=== PATIENT | female | born 1980 | race Caucasian/White ===

== ENCOUNTER 2017-10-01 15:28 | Inpatient (IN) | payer OTHER ==
[2017-10-01] MEDS ORDERED: OXYTOCIN 20 UNIT in LR 1,000 ML IV PRN (15:51)
[2017-10-01] MEDS ORDERED: EPSOM SALT 454 GM TP PRN (15:51)
[2017-10-01] MEDS ORDERED: LR 1,000 ML IV PRN (15:51)
[2017-10-01] MEDS ORDERED: OLIVE OIL 118 ML BTL MISC PRN (15:51)
[2017-10-01] MEDS ORDERED: TERBUTALINE SULFATE 1 MG/ML VIAL IV PRN (15:51)
[2017-10-01 16:21] LABS: % IMMATURE GRANULYOCYTES 1.2 % (0.0-1.1); ABSOLUTE IMMATURE GRANULOCYTES 0.11 10^3/uL (0.00-0.10); ADD DIFF? NO; ADD MORPH? NO; ADD SCAN? NO; ATYPICAL LYMPHOCYTE FLAG 0 (0-99); FRAGMENT RBC FLAG 0 (0-99); HEMATOCRIT 37.2 % (38.0-47.0); HEMOGLOBIN 12.9 g/dL (12.6-16.3); LEFT SHIFT FLG 0 (0-99); LIPEMIA HEMOLYSIS FLAG 90 (0-99); MEAN CELL HEMOGLOBIN 30.7 pg (27.9-34.1); MEAN CELL HEMOGLOBIN CONCENTR. 34.7 g/dL (32.4-36.7); MEAN CELL VOLUME 88.6 fL (81.5-99.8); MEAN PLATELET VOLUME 10.3 fL (8.7-11.7); PLATELET CLUMPS FLAG 0 (0-99); PLATELET COUNT 227 10^3/uL (150-400); RED CELL DISTRIBUTION WIDTH 14.6 % (11.5-15.2)
[2017-10-01 16:37] LABS: ALANINE AMINOTRANSFERASE 43 IU/L (9-52); ASPARTATE AMINOTRANSFERASE 32 IU/L (14-46); BILIRUBIN,TOTAL 0.4 mg/dL (0.1-1.4); BILIRUBIN-CONJUGATED 0.2 mg/dL (0.0-0.5); BILIRUBIN-UNCONJUGATED 0.2 mg/dL (0.0-1.1); CREATININE 0.5 mg/dL (0.6-1.0); GLOMERULAR FILTRATION RATE > 60; LACTATE DEHYDROGENASE 475 IU/L (313-618); URIC ACID 6.1 mg/dL (2.5-6.8)
[2017-10-01] MEDS ORDERED: LABETALOL HCL 5 MG/ML 20 ML MDV IVP ONE (16:49)
--- NOTE | 2017-10-01 17:02 | OBPROG ---
Labor Progress Note Assessment/Plan: Assessment:cat 1 fhr elevated bp denies pih symptoms 1cm exam mcnally bulb low dose pitocin Plan:admit, iol elevated bp consult for POC with dr. philippe 10/01/17 17:01 Subjective/Intrapartum Course: 10/01/17 17:00 Denies PIH symptoms. Denies regular contractions. Feeling positive movement denies leaking and bleeding. Discussed need to have a baby with elevated bp Objective: 10/01/17 16:00 10/01/17 16:00 Uric Acid 6.1 mg/dL (2.5-6.8) 10/01/17 16:00 Total Bilirubin 0.4 mg/dL (0.1-1.4) 10/01/17 16:00 Conjugated Bilirubin 0.2 mg/dL (0.0-0.5) 10/01/17 16:00 Unconjugated Bilirubin 0.2 mg/dL (0.0-1.1) 10/01/17 16:00 AST 32 IU/L (14-46) 10/01/17 16:00 ALT 43 IU/L (9-52) 10/01/17 16:00 Lactate Dehydrogenase 475 IU/L (313-618) 10/01/17 16:00 - SVE Dilation (cm): 1 Effacement (%): Less than 50 Station: -2 Membranes: Intact - Contraction Pattern Assessment Current Contraction Pattern: Irregular - FHR Assessment Pitts FHR (bpm): 135 FHR Pattern Variability: Moderate FHR Category: 1 - Physical Exam General Appearance: WD/WN, alert, no apparent distress Respiratory: chest non-tender, lungs clear, normal breath sounds Cardiac/Chest: regular rate, rhythm Abdomen: normal bowel sounds Extremities: normal range of motion, Ting's sign (negative bilaterally) DTR- Lower Extremities: Knee (R): 1+, Knee (L): 1+ (no clonus) Skin: normal color, warm/dry Neuro/Psych: no motor/sensory deficits, alert, normal mood/affect, oriented x 3 ICD10 Worksheet Patient Problems: Problems Problem Status Onset elevated bp iol 38 weeks Acute
--- NOTE | 2017-10-01 18:46 | OBPROG ---
Labor Progress Note Assessment/Plan: Assessment:cat 1 fhr elevated bp labetolol 5mg ivp for elevated bp denies pih symptoms 1cm exam/ 50/-2 posterior soft us to verify cephalic presentation unable to place mcnally will do cytotec 50mcg po q4h frequent bp continuous monitoring medication for sleep at patient request Plan:consulted with dr. philippe on change of poc for patient dr. philippe in agreement with POC cytotec po q4h 10/01/17 17:01 10/01/17 18:43 Subjective/Intrapartum Course: 10/01/17 17:00 Denies PIH symptoms. Denies regular contractions. Feeling positive movement denies leaking and bleeding. Discussed need to have a baby with elevated bp 10/01/17 18:42 Denies PIH symptoms. Denies pain. Feeling pain with speculum exam, and mcnally placement. Objective: 10/01/17 16:00 10/01/17 16:00 Patient ABO/Rh AB POSITIVE 10/01/17 16:00 Uric Acid 6.1 mg/dL (2.5-6.8) 10/01/17 16:00 Total Bilirubin 0.4 mg/dL (0.1-1.4) 10/01/17 16:00 Conjugated Bilirubin 0.2 mg/dL (0.0-0.5) 10/01/17 16:00 Unconjugated Bilirubin 0.2 mg/dL (0.0-1.1) 10/01/17 16:00 AST 32 IU/L (14-46) 10/01/17 16:00 ALT 43 IU/L (9-52) 10/01/17 16:00 Lactate Dehydrogenase 475 IU/L (313-618) 10/01/17 16:00 Temp Pulse Resp BP Pulse Ox 98 177/98 H 10/01/17 18:16 10/01/17 18:16 - SVE Dilation (cm): 1 Effacement (%): 50 Station: -3 Membranes: Intact - Contraction Pattern Assessment Current Contraction Pattern: Irregular - FHR Assessment Pitts FHR (bpm): 135 FHR Pattern Variability: Moderate FHR Category: 1 - AP Antepartum Course: edc 10/14/2017 came in too office today for routine check with elevated bp. PIH labs WNL. BP elevated over several hours in labor and delivery. anemic with . AMA. Exposure to zika virus negative testing. inatal negative. 10/01/17 18:47 Oxytocin Orders Assessment - Pre-Induction/Augmentation Assessment Gestational Age: 38 week(s) and 1 day(s) ICD10 Worksheet Patient Problems: Problems Problem Status Onset elevated bp iol 38 weeks Acute
[2017-10-01] MEDS ORDERED: LIDOCAINE 1% 300 MG/30 ML SDV ONE (19:02)
[2017-10-01] MEDS ORDERED: AMMONIA AROMATIC 1 EACH AMP IH ONE (19:02)
[2017-10-01] MEDS ORDERED: OLIVE OIL 118 ML BTL ONE (19:02)
[2017-10-01] MEDS ORDERED: TERBUTALINE SULFATE 1 MG/ML VIAL ONE (19:02)
[2017-10-01] MEDS ORDERED: MISOPROSTOL 200 MCG TAB ONE (19:02)
[2017-10-01] MEDS ORDERED: OXYTOCIN 10 UNIT/ML VIAL ONE (19:02)
[2017-10-01] MEDS: MISOPROSTOL 100 MCG TAB PO SCH ×2 (19:11→23:12)
--- NOTE | 2017-10-01 19:43 | GHP ---
[f rep st] HISTORY AND PHYSICAL DATE OF ADMISSION: 10/01/2017 HISTORY OF PRESENTING ILLNESS: The patient is a 37-year-old 1, para 0, with an EDC of 10/14/2017, who comes over from the office with significantly elevated blood pressures. The patient denies leaking, bleeding, cramping. Denies PIH symptoms. States feeling positive movement. The patient's gestational age is 38 weeks. The patient has been routinely seen with [facility], [place] since 8 weeks and 1 day, on 03/05/2017. MEDICAL HISTORY: Cystitis, UTIs q. 2 years. Surgeries: [place] teeth extraction. Lacerated foot had stitches. GYNECOLOGICAL HISTORY: Previous OCP use, discontinued in 10/2016. Pap on 2015 was within normal limits. SOCIAL HISTORY: Denies tobacco, alcohol, and drug use. Significant other is Janes. PRESENT HISTORY: AMA, elevated blood pressures on 10/01/2017. REVIEW OF SYSTEMS: Times 8 were benign. PIH symptoms were denied. Category 1 heart rate. ALLERGIES: NKDA. MEDICATIONS: vitamins 1 p.o. daily. LABS: Patient is AB positive, antibody negative. RPR is nonreactive. Rubella is nonimmune. Hepatitis is negative. HIV is negative. Gonorrhea and chlamydia were negative. AFP was negative. _Innatal was negative. 1 hour GTT was within normal limits. Zika virus was tested resulted negative. Early ultrasound did confirm dates. PIH labs were within normal limits. P-to-C ratio was 235. PHYSICAL ASSESSMENT: GENERAL: The patient is awake, alert, oriented x3. LUNGS : Clear bilaterally. ABDOMEN: Bowel sounds are positive in all 4 quadrants. EXTREMITIES: DTRs were 1+ bilaterally with no clonus. Homans sign was negative. PELVIC: 1 cm, 50% effaced, very posterior, very high, soft. Presenting part was verified with ultrasound; the baby is cephalic. Consulted with Dr. Sandhya Vasquez. PLAN OF CARE: 1. Labetalol for blood pressures higher than 160/105. 2. GBS is negative. 3. Induction of labor with Cytotec 50 mcg p.o. q.4 hours. 4. Love bulb when able to place. 5. Low-dose Pitocin up to 6 milliunits with Love bulb. 6. Pitocin per protocol after Love bulb is discontinued. 7. Monitor blood pressures per protocol. 8. Continuous monitoring. 9. Pain medication per patient request. 10. Medication for sleep if desires /[id number]/MODL MTDD
[2017-10-01] MEDS ORDERED: ZOLPIDEM TARTRATE 5 MG TAB PO PRN (20:30)
[2017-10-02] MEDS: MISOPROSTOL 100 MCG TAB PO SCH (03:15)
[2017-10-02 06:12] LABS: % IMMATURE GRANULYOCYTES 0.5 % (0.0-1.1); ABSOLUTE IMMATURE GRANULOCYTES 0.05 10^3/uL (0.00-0.10); ADD DIFF? NO; ADD MORPH? NO; ADD SCAN? NO; ATYPICAL LYMPHOCYTE FLAG 10 (0-99); FRAGMENT RBC FLAG 0 (0-99); HEMOGLOBIN 12.8 g/dL (12.6-16.3); LEFT SHIFT FLG 0 (0-99); LIPEMIA HEMOLYSIS FLAG 90 (0-99); MEAN CELL HEMOGLOBIN CONCENTR. 34.6 g/dL (32.4-36.7); MEAN CELL VOLUME 89.6 fL (81.5-99.8); MEAN PLATELET VOLUME 9.9 fL (8.7-11.7); PLATELET CLUMPS FLAG 0 (0-99); PLATELET COUNT 216 10^3/uL (150-400); RED BLOOD CELL COUNT 4.13 10^6/uL (4.18-5.33); RED CELL DISTRIBUTION WIDTH 14.7 % (11.5-15.2)
[2017-10-02 06:44] LABS: ALANINE AMINOTRANSFERASE 41 IU/L (9-52); ASPARTATE AMINOTRANSFERASE 32 IU/L (14-46); CREATININE 0.6 mg/dL (0.6-1.0); GLOMERULAR FILTRATION RATE > 60; LACTATE DEHYDROGENASE 442 IU/L (313-618); URIC ACID 6.5 mg/dL (2.5-6.8)
[2017-10-02] MEDS ORDERED: LABETALOL HCL 5 MG/ML 20 ML MDV IVP ONE (06:51)
[2017-10-02] MEDS ORDERED: OXYTOCIN 30 UNIT in NS 500 ML IV SCH (07:00)
--- NOTE | 2017-10-02 07:00 | OBPROG ---
Labor Progress Note Assessment/Plan: Assessment:cat 1 fhr elevated bp labetolol 5mg ivp x2 to assist bp 183/105 denies pih symptoms /-1 after cytotec mcnally bulb placed srom with placement able to use mcnally bulb to mechanically dialte to 3-4 mcnally bulb dc'd us to verify cephalic presentation frequent bp continuous monitoring Plan:pitocin per protocol 10/01/17 17:01 10/01/17 18:43 10/02/17 06:57 Subjective/Intrapartum Course: 10/01/17 17:00 Denies PIH symptoms. Denies regular contractions. Feeling positive movement denies leaking and bleeding. Discussed need to have a baby with elevated bp 10/01/17 18:42 Denies PIH symptoms. Denies pain. Feeling pain with speculum exam, and mcnally placement. 10/02/17 06:57 Feeling greater pain. Urge to pee continually. Feeling some pressure. Objective: 10/02/17 05:55 10/02/17 05:55 Patient ABO/Rh AB POSITIVE 10/01/17 16:00 Uric Acid 6.5 mg/dL (2.5-6.8) 10/02/17 05:55 Total Bilirubin 0.4 mg/dL (0.1-1.4) 10/01/17 16:00 Conjugated Bilirubin 0.2 mg/dL (0.0-0.5) 10/01/17 16:00 Unconjugated Bilirubin 0.2 mg/dL (0.0-1.1) 10/01/17 16:00 AST 32 IU/L (14-46) 10/02/17 05:55 ALT 41 IU/L (9-52) 10/02/17 05:55 Lactate Dehydrogenase 442 IU/L (313-618) 10/02/17 05:55 Temp Pulse Resp BP Pulse Ox 98 177/98 H 10/01/17 18:16 10/01/17 18:16 - SVE Dilation (cm): 3, 4 Effacement (%): 100 Station: -1 Membranes: SROM Amniotic Fluid Color: Clear - Contraction Pattern Assessment Current Contraction Pattern: Regular - FHR Assessment Pitts FHR (bpm): 135 FHR Pattern Variability: Minimal FHR Category: 2 - Procedures Non-surgical Procedures: Amniotomy - AP Antepartum Course: edc 10/14/2017 came in too office today for routine check with elevated bp. PIH labs WNL. BP elevated over several hours in labor and delivery. anemic with . AMA. Exposure to zika virus negative testing. inatal negative. 10/01/17 18:47 Oxytocin Orders Assessment - Pre-Induction/Augmentation Assessment Gestational Age: 38 week(s) and 1 day(s) ICD10 Worksheet Patient Problems: Problems Problem Status Onset elevated bp iol 38 weeks Acute
[2017-10-02] MEDS ORDERED: PHENYLEPHRINE HCL 100 MCG/ML SYR ONE ×2 (07:43→19:23)
[2017-10-02] MEDS ORDERED: BUPIVACAINE 0.25% 30 ML SDV ONE (07:43)
[2017-10-02] MEDS ORDERED: fentaNYL 100 MCG/2 ML INJ ONE ×2 (07:45→18:37)
--- NOTE | 2017-10-02 09:29 | PREANESOB ---
Obstetric Pre-Anesthesia Info - General Info Proposed Procedure: Labor and delivery (pitocin planned). : 1 Para: 0 LUKAS: 10/14/17 Gestational Age: 38 week(s) and 1 day(s) - Info Status: Full Term Monitors: External FHR Baseline (bpm): 135 FHR Pattern: Reassuring - Labor Status Cervical Dilation per last OB SVE: 4 Station per last OB SVE: -1 Amniotic Fluid Color: Clear Pitocin: Planned PIH: Mild Magnesium Sulfate in Use: No Indications for Labor Analgesia: Induction of Labor, Pain Control Labor Epidural: Proposed Anesthesia ROS: Prior oral surgery. Allergies/Adverse Reactions: Allergy/AdvReac Type Severity Reaction Status Date / Time No Known Allergies Allergy Unverified 10/01/17 15:50 Visit Medications: Generic Name Dose Route Start Last Admin Trade Name Freq PRN Reason Stop Dose Admin Lactated Ringer's 1,000 mls @ 0 mls/hr 10/01/17 15:51 10/02/17 07:37 Lr IV 10/02/17 15:50 1,000 mls PRN PRN Administration SEE PROTOCOL CONDITIONS Protocol Per Protocol Oxytocin 20 unit/ Lactated 1,002 mls @ 150 mls/hr 10/01/17 15:51 Ringer's IV PRN PRN Post- bleeding Oxytocin 30 unit/ Sodium 503 mls @ 0 mls/hr 10/02/17 07:00 10/02/17 09:00 Chloride IV 03/31/18 06:59 503 mls CONT WARD Administration Protocol Per Protocol Ibuprofen 600 mg 10/01/17 15:51 Motrin PO 03/30/18 15:50 Q6HRS PRN post , inflammation Magnesium Sulfate 454 gm 10/01/17 15:51 Epsom Salt TP 03/30/18 15:50 Q1H PRN perineal discomfort Misoprostol 50 mcg 10/01/17 18:52 10/02/17 03:15 Cytotec PO 03/30/18 18:51 50 mcg Q4H WARD Administration Blackwell Oil 118 ml 10/01/17 15:51 Sweet Oil MISC 03/30/18 15:50 ONCE PRN perineal massage Terbutaline Sulfate 0.25 mg 10/01/17 15:51 Brethine IV 03/30/18 15:50 ONCE PRN Tachysystole Zolpidem Tartrate 10 mg 10/01/17 20:30 10/01/17 23:11 Ambien PO 03/30/18 20:29 10 mg HS PRN Administration Sleep/Insomnia Discontinued Medications Generic Name Dose Route Start Last Admin Trade Name Valentina PRN Reason Stop Dose Admin Ammonia (Aromatic Spirit) Confirm 10/01/17 19:02 Ammonia Aromatic Administered 10/01/17 19:03 Dose 1 each IH .STK-MED ONE Bupivacaine HCl Confirm 10/02/17 07:43 Sensorcaine 0.25% Sdv Administered 10/02/17 07:44 Dose 30 ml .ROUTE .STK-MED ONE Fentanyl Confirm 10/02/17 07:45 Sublimaze Administered 10/02/17 07:46 Dose 100 mcg .ROUTE .STK-MED ONE Labetalol HCl 20 mg 10/01/17 16:49 10/01/17 18:16 Trandate Injection IVP 10/01/17 16:50 5 mg ONCE ONE Administration Labetalol HCl 10 mg 10/02/17 06:51 10/02/17 06:20 Trandate Injection IVP 10/02/17 06:52 10 mg ONCE ONE Administration Lidocaine HCl Confirm 10/01/17 19:02 Lidocaine Hcl 1% Administered 10/01/17 19:03 Dose 300 mg .ROUTE .STK-MED ONE Misoprostol Confirm 10/01/17 19:02 Cytotec Administered 10/01/17 19:03 Dose 1,000 mcg .ROUTE .STK-MED ONE Blackwell Oil Confirm 10/01/17 19:02 Sweet Oil Administered 10/01/17 19:03 Dose 118 ml .ROUTE .STK-MED ONE Oxytocin Confirm 10/01/17 19:02 Pitocin Administered 10/01/17 19:03 Dose 30 unit .ROUTE .STK-MED ONE Phenylephrine HCl Confirm 10/02/17 07:43 Neosynephrine Administered 10/02/17 07:44 Dose 1,000 mcg .ROUTE .STK-MED ONE Terbutaline Sulfate Confirm 10/01/17 19:02 Brethine Administered 10/01/17 19:03 Dose 1 mg .ROUTE .STK-MED ONE - Anesthesia History Response to Local Anesthetics: Normal Anesthesia & Operative History: No Prior Problems Family Anesthesia History: Negative - Social History Substance Use/Abuse: Denies - Vital Signs Latest Vital Signs (Nursing): Temp Pulse Resp BP Pulse Ox 108 H 188/113 H 10/02/17 06:20 10/02/17 06:20 Blood Pressure: 170/103 Heart Rate: 100 Respiratory Rate: 18 Height/Weight (Nursing): Height 162.56 cm Weight 91.626 kg - Focused Exam Neck exam: FROM Mallampati Score: Class 1 Mouth exam: normal dental/mouth exam Pulmonary: no respiratory distress Cardiovascular: regular rate and rhythym Labs: 10/02/17 05:55 10/02/17 05:55 Patient ABO/Rh AB POSITIVE 10/01/17 16:00 Uric Acid 6.5 mg/dL (2.5-6.8) 10/02/17 05:55 Total Bilirubin 0.4 mg/dL (0.1-1.4) 10/01/17 16:00 Conjugated Bilirubin 0.2 mg/dL (0.0-0.5) 10/01/17 16:00 Unconjugated Bilirubin 0.2 mg/dL (0.0-1.1) 10/01/17 16:00 AST 32 IU/L (14-46) 10/02/17 05:55 ALT 41 IU/L (9-52) 10/02/17 05:55 Lactate Dehydrogenase 442 IU/L (313-618) 10/02/17 05:55 - Plan Anesthetic Plan: BENNETT Consent Signed and on Chart: Yes Patient/Guardian Understands and Agrees to Plan: Yes Urgent/Emergent Case: Heron ochoa completed preop but documented later for safe timely pt care
[2017-10-02] MEDS ORDERED: ONDANSETRON 4 MG/2 ML VIAL IVP PRN ×2 (09:32→21:22)
[2017-10-02] MEDS ORDERED: PHENYLEPHRINE HCL 100 MCG/ML SYR IVP PRN (09:32)
--- NOTE | 2017-10-02 09:32 | POSTANESTH ---
Post Anesthetic Evaluation Cardiovascular Status: Similar to Pre-Op Cond Respiratory Status: Normal, Stable, Similar to Pre-op Cond. Level of Consciousness/Mental Status: Can Participate in Eval, Alert and Oriented Pain Control: Adequate, Prn Tx Ordered Nausea/Vomiting Control: Adequate, Prn Tx Ordered Complications Possibly Related to Anesthesia: None Noted
[2017-10-02] MEDS ORDERED: fentaNYL 2MCG/ML/BUP 0.1% RTU 100 ML BAG EP ONE (09:40)
[2017-10-02] MEDS ORDERED: LR 500 ML IV SCH (10:00)
[2017-10-02] MEDS ORDERED: fentaNYL 2MCG/ML/BUP 0.1% RTU 100 ML EP SCH (10:00)
[2017-10-02] MEDS ORDERED: ceFAZolin 2 GM/SWFI 2 GM/20 ML SYR IVP ONE (18:05)
[2017-10-02] MEDS ORDERED: CEFAZOLIN 2 GM/DEXTROSE/100 ML BAG IV ONE (18:09)
--- NOTE | 2017-10-02 18:18 | OBPROG ---
Labor Progress Note Assessment/Plan: Assessment: IUP at 38+ wks indxn for gestational hypertension arrest of descent, failed vacuum asst Plan: Proceed to C/S 10/02/17 18:13 Subjective/Intrapartum Course: 10/01/17 17:00 Denies PIH symptoms. Denies regular contractions. Feeling positive movement denies leaking and bleeding. Discussed need to have a baby with elevated bp 10/01/17 18:42 Denies PIH symptoms. Denies pain. Feeling pain with speculum exam, and mcnally placement. 10/02/17 06:57 Feeling greater pain. Urge to pee continually. Feeling some pressure. 10/02/17 18:15 pt is fatiqued, has had pressure and pushed effectively for approx 2 hours - less effectively for building fatique for and hour, at that point, baby at 0 station and attempt to position for labor down and rest. now approx 1 1/2 hour later - attempted VAVD but no descent with station, feels in good OA position but no descent - pt too fatiqued to push further. Disc C/S and pt agrees and consent signed. Objective: 10/02/17 05:55 10/02/17 05:55 Patient ABO/Rh AB POSITIVE 10/01/17 16:00 Uric Acid 6.5 mg/dL (2.5-6.8) 10/02/17 05:55 Total Bilirubin 0.4 mg/dL (0.1-1.4) 10/01/17 16:00 Conjugated Bilirubin 0.2 mg/dL (0.0-0.5) 10/01/17 16:00 Unconjugated Bilirubin 0.2 mg/dL (0.0-1.1) 10/01/17 16:00 AST 32 IU/L (14-46) 10/02/17 05:55 ALT 41 IU/L (9-52) 10/02/17 05:55 Lactate Dehydrogenase 442 IU/L (313-618) 10/02/17 05:55 Temp Pulse Resp BP Pulse Ox 100 18 170/103 H 10/02/17 09:31 10/02/17 09:31 10/02/17 09:31 - SVE Dilation (cm): 10 Effacement (%): 100 Station: 0 Membranes: SROM Amniotic Fluid Color: Clear Dilation Complete Date: 10/02/17 - Contraction Pattern Assessment Current Contraction Pattern: Regular (were q 2-3 min on 14 mu/min pit) - FHR Assessment Pitts FHR (bpm): 130 FHR Pattern Variability: Moderate FHR Category: 1 - Procedures Non-surgical Procedures: Amniotomy - AP Antepartum Course: edc 10/14/2017 came in too office today for routine check with elevated bp. PIH labs WNL. BP elevated over several hours in labor and delivery. anemic with . AMA. Exposure to zika virus negative testing. inatal negative. 10/01/17 18:47 Oxytocin Orders Assessment - Pre-Induction/Augmentation Assessment Gestational Age: 38 week(s) and 1 day(s) ICD10 Worksheet Patient Problems: Problems Problem Status Onset Arrest of descent, delivered, current hospitalization Acute elevated bp iol 38 weeks Acute - ICD10 Problem Qualifiers (1) Arrest of descent, delivered, current hospitalization
[2017-10-02] MEDS ORDERED: morphINE PF 5 MG/10 ML INJ ONE (18:35)
[2017-10-02] MEDS ORDERED: OXYTOCIN 100 UNITS/10 ML VIAL ONE (18:37)
[2017-10-02] MEDS ORDERED: DEXAMETHASONE 4 MG/ML VIAL ONE ×2 (18:38)
[2017-10-02] MEDS ORDERED: ONDANSETRON 4 MG/2 ML VIAL ONE (18:38)
[2017-10-02] MEDS ORDERED: METOCLOPRAMIDE 10 MG/2 ML VIAL ONE (19:08)
[2017-10-02] MEDS ORDERED: MEPERIDINE 25 MG/ML SYR ONE (19:37)
[2017-10-02] MEDS ORDERED: BISACODYL 10 MG SUPP PR PRN (20:00)
[2017-10-02] MEDS ORDERED: LACTULOSE 20 GM/30 ML UDCUP PO PRN (20:00)
[2017-10-02] MEDS ORDERED: MAGNESIUM HYDROXIDE 30 ML UDCUP PO PRN (20:00)
[2017-10-02] MEDS ORDERED: POLYETHYLENE GLYCOL 3350 17 GM PKT PO PRN (20:00)
--- NOTE | 2017-10-02 20:05 | OBDEL ---
Info Type: Primary Presentation at Delivery: Vertex (OP) L&D Analgesia/Anesthesia Type: Epidural GBS+: No Intrapartum Medications: Generic Name Dose Route Start Last Admin Trade Name Freq PRN Reason Stop Dose Admin Oxytocin 30 unit/ Sodium 503 mls @ 0 mls/hr 10/02/17 07:00 10/02/17 09:00 Chloride IV 03/31/18 06:59 503 mls CONT WARD Administration Protocol Per Protocol Misoprostol 50 mcg 10/01/17 18:52 10/02/17 03:15 Cytotec PO 03/30/18 18:51 50 mcg Q4H WARD Administration Zolpidem Tartrate 10 mg 10/01/17 20:30 10/01/17 23:11 Ambien PO 03/30/18 20:29 10 mg HS PRN Administration Sleep/Insomnia Discontinued Medications Generic Name Dose Route Start Last Admin Trade Name Freq PRN Reason Stop Dose Admin Lactated Ringer's 1,000 mls @ 0 mls/hr 10/01/17 15:51 10/02/17 07:37 Lr IV 10/02/17 15:50 1,000 mls PRN PRN Administration SEE PROTOCOL CONDITIONS Protocol Per Protocol Labetalol HCl 20 mg 10/01/17 16:49 10/01/17 18:16 Trandate Injection IVP 10/01/17 16:50 5 mg ONCE ONE Administration Labetalol HCl 10 mg 10/02/17 06:51 10/02/17 06:20 Trandate Injection IVP 10/02/17 06:52 10 mg ONCE ONE Administration - Hospital Course Intrapartum: 10/01/17 17:00 Denies PIH symptoms. Denies regular contractions. Feeling positive movement denies leaking and bleeding. Discussed need to have a baby with elevated bp 10/01/17 18:42 Denies PIH symptoms. Denies pain. Feeling pain with speculum exam, and mcnally placement. 10/02/17 06:57 Feeling greater pain. Urge to pee continually. Feeling some pressure. 10/02/17 18:15 pt is fatiqued, has had pressure and pushed effectively for approx 2 hours - less effectively for building fatique for and hour, at that point, baby at 0 station and attempt to position for labor down and rest. now approx 1 1/2 hour later - attempted VAVD but no descent with station, feels in good OA position but no descent - pt too fatiqued to push further. Disc C/S and pt agrees and consent signed. Indications for Delivery: Gestational Hypertension Vaginal Delivery - Labor and Delivery Amniotic Fluid Color: Clear Dilation Complete Date: 10/02/17 Non-surgical Procedures: Amniotomy Operative Report - Delivery Pre-op Diagnoses: IUP at 38+ wks, arrest of descent, gestational hypertension Post-op Diagnoses: same, delivered, OP presentation History of Prior Section: No Number of Prior Sections: 0 Nulliparous Prior to Delivery: No Indications for Current Section: Arrest of Descent Procedure: Unscheduled, Low Transverse Surgeon: Shelley Escobar Hull Grinder: Lorie Gudino Anesthesiologist: Claudy Celary Findings: normal ut, ov, tubes. clear fluid upon hysterotomy, hands and cord at hysterotomy - direct OP presentation. easy delivery of placenta, poor uterine tone initially but responded to pitocin and massage. incisional edges identified - small inferior extension on left of center. double layer closure. concentrated urine at end of procedure IV Fluid (ml): 2,000 EBL: 1400 Data LUKAS: 10/14/17 Gestational Age: 38 week(s) and 2 day(s) Pitts Delivery Date: 10/02/17 Delivery Time: 18:40 Sex of : Female (Clementina) Score (1 Min): 8 Score (5 Min): 9 ICD10 Worksheet Patient Problems: Problems Problem Status Onset Gestational hypertension Acute delivery delivered Acute Arrest of descent, delivered, current hospitalization Acute - ICD10 Problem Qualifiers (1) Arrest of descent, delivered, current hospitalization
[2017-10-02] MEDS ORDERED: KETOROLAC 30 MG/1 ML SDV ONE (20:39)
[2017-10-02] MEDS: KETOROLAC 30 MG/1 ML SDV IVP SCH (20:42)
[2017-10-02] MEDS ORDERED: NALOXONE HCL 0.4 MG/ML INJ IVP PRN (21:22)
--- NOTE | 2017-10-02 21:26 | POSTANESTH ---
Post Anesthetic Evaluation Cardiovascular Status: Normal, Stable, Similar to Pre-Op Cond Respiratory Status: Normal, Stable, Similar to Pre-op Cond. Level of Consciousness/Mental Status: Can Participate in Eval, Mildly Sleepy, Arousable (Epidural dosed for C Section, to OR, BP treated, comfortable for surgery, to PACU, no pain or nausea.) Pain Control: Adequate, Prn Tx Ordered Nausea/Vomiting Control: Adequate, Prn Tx Ordered Complications Possibly Related to Anesthesia: None Noted
[2017-10-02] MEDS ORDERED: MEASLES,MUMPS&RUBELLA VACC/PF 0.5 ML VIAL SC ONE (21:44)
[2017-10-03] MEDS: KETOROLAC 30 MG/1 ML SDV IVP SCH ×3 (05:14→17:11)
[2017-10-03] MEDS: SENNOSIDES/DOCUSATE SODIUM TAB PO SCH ×3 (05:35→21:15)
[2017-10-03] MEDS ORDERED: MEASLES,MUMPS&RUBELLA VACC/PF 0.5 ML VIAL SC ONE (18:00)
[2017-10-03] MEDS: HYDROCODONE/APAP 5/325 TAB PO PRN (21:15)
[2017-10-04] MEDS: HYDROCODONE/APAP 5/325 TAB PO PRN (07:59)
[2017-10-04] MEDS: SENNOSIDES/DOCUSATE SODIUM TAB PO SCH ×2 (07:59→21:03)
[2017-10-04] MEDS: IBUPROFEN 600 MG TAB PO PRN ×2 (14:09→21:15)
--- NOTE | 2017-10-05 01:12 | OBPP ---
Progress Note Assessment/Plan: Assessment: [id number] s/p primary c/s POD#2 Pre-eclampsia Plan: routine post op care cont monitor BPs closely plan to d/c home tomorrow 10/05/17 01:08 Subjective/ Course: 10/05/17 01:09 late entry Pt doing well, she denies any headaches, visual changes, epigastric pain. She reports min bleeding and pain. She is without difficulty. She is ambulating and voiding without difficulty.She reports +BM. Objective: 10/02/17 05:55 10/02/17 05:55 Patient ABO/Rh AB POSITIVE 10/01/17 16:00 Uric Acid 6.5 mg/dL (2.5-6.8) 10/02/17 05:55 Total Bilirubin 0.4 mg/dL (0.1-1.4) 10/01/17 16:00 Conjugated Bilirubin 0.2 mg/dL (0.0-0.5) 10/01/17 16:00 Unconjugated Bilirubin 0.2 mg/dL (0.0-1.1) 10/01/17 16:00 AST 32 IU/L (14-46) 10/02/17 05:55 ALT 41 IU/L (9-52) 10/02/17 05:55 Lactate Dehydrogenase 442 IU/L (313-618) 10/02/17 05:55 Temp Pulse Resp BP Pulse Ox 36.2 C 92 16 142/89 H 93 10/04/17 23:40 10/04/17 23:55 10/04/17 23:55 10/04/17 23:55 10/04/17 23:55 Uterine Position/Fundal Height: Umbilicus -1, Midline Uterine Tone: Firm (incision: C/D/I, steristrips present)
[2017-10-05] MEDS: IBUPROFEN 600 MG TAB PO PRN ×2 (04:26→10:41)
[2017-10-05] MEDS: NIFEdipine ER 30 MG TAB PO SCH (09:23)
[2017-10-05] MEDS: SENNOSIDES/DOCUSATE SODIUM TAB PO SCH (09:24)
--- NOTE | 2017-10-05 09:40 | OBPP ---
Progress Note Assessment/Plan: Assessment: 1) s/p 1 LTCS secondary to AOD, failed vacuum POD # 3 - pt is stable 2) HTN - BPs elevated, started on Nifedipine 3) Anemia - pt is asymptomatic Plan: Continue routine post-op care Will cont to monitor BPs closely, pt is asymptomatic Nifedipine started this am PIH labs normal on 10/02, will recheck this am Will plan for d/c home in am if BPs stable on meds 10/05/17 09:40 Subjective/ Course: 10/05/17 01:09 late entry Pt doing well, she denies any headaches, visual changes, epigastric pain. She reports min bleeding and pain. She is without difficulty. She is ambulating and voiding without difficulty. She reports +BM. 10/05/17 09:36 Pt seen and examined. She is tearful this morning and worried about baby. Minimal cramping. Mod lochia. Denies any BRYANT/s, visual changes, or RUQ pain. Pt is OOB, thien reg diet, voiding and passing flatus. BM x 1. BF without difficulty -concerned her milk hasn't come in yet. Objective: 10/02/17 05:55 10/02/17 05:55 Patient ABO/Rh AB POSITIVE 10/01/17 16:00 Uric Acid 6.5 mg/dL (2.5-6.8) 10/02/17 05:55 Total Bilirubin 0.4 mg/dL (0.1-1.4) 10/01/17 16:00 Conjugated Bilirubin 0.2 mg/dL (0.0-0.5) 10/01/17 16:00 Unconjugated Bilirubin 0.2 mg/dL (0.0-1.1) 10/01/17 16:00 AST 32 IU/L (14-46) 10/02/17 05:55 ALT 41 IU/L (9-52) 10/02/17 05:55 Lactate Dehydrogenase 442 IU/L (313-618) 10/02/17 05:55 Temp Pulse Resp BP Pulse Ox 36.2 C 94 16 163/98 H 92 10/05/17 04:29 10/05/17 04:29 10/05/17 04:29 10/05/17 09:23 10/05/17 04:29 Uterine Position/Fundal Height: Umbilicus -1 Uterine Tone: Firm Physical Exam - Physical Exam Respiratory: lungs clear, normal breath sounds Cardiac/Chest: regular rate, rhythm Abdomen: normal bowel sounds, non-tender, soft, flatus (+), incision (C/D/I, well approximated) Extremities: non-tender, normal inspection, swelling DTR- Lower Extremities: Plantar (R): 1+, Plantar (L): 1+ Skin: normal color, warm/dry Neuro/Psych: alert, normal mood/affect, oriented x 3
[2017-10-05 11:13] LABS: % IMMATURE GRANULYOCYTES 2.4 % (0.0-1.1); ADD DIFF? NO; ADD MORPH? NO; ADD SCAN? NO; ATYPICAL LYMPHOCYTE FLAG 0 (0-99); FRAGMENT RBC FLAG 0 (0-99); HEMATOCRIT 24.2 % (38.0-47.0); LEFT SHIFT FLG 20 (0-99); LIPEMIA HEMOLYSIS FLAG 80 (0-99); MEAN CELL HEMOGLOBIN 30.3 pg (27.9-34.1); MEAN CELL HEMOGLOBIN CONCENTR. 33.1 g/dL (32.4-36.7); MEAN CELL VOLUME 91.7 fL (81.5-99.8); MEAN PLATELET VOLUME 9.5 fL (8.7-11.7); PLATELET CLUMPS FLAG 10 (0-99); PLATELET COUNT 204 10^3/uL (150-400); RED BLOOD CELL COUNT 2.64 10^6/uL (4.18-5.33)
[2017-10-05 12:10] LABS: ALANINE AMINOTRANSFERASE 51 IU/L (9-52); ASPARTATE AMINOTRANSFERASE 49 IU/L (14-46); BILIRUBIN,TOTAL 0.3 mg/dL (0.1-1.4); BILIRUBIN-CONJUGATED 0.1 mg/dL (0.0-0.5); BILIRUBIN-UNCONJUGATED 0.2 mg/dL (0.0-1.1); CREATININE 0.7 mg/dL (0.6-1.0); GLOMERULAR FILTRATION RATE > 60; LACTATE DEHYDROGENASE 549 IU/L (313-618); URIC ACID 7.9 mg/dL (2.5-6.8)
[2017-10-05] MEDS ORDERED: MAGNESIUM SULF 4 GM/WATER 100 ML BAG IV ONE (16:15)
[2017-10-05] MEDS ORDERED: MAGNESIUM SULF 2 GM/WATER 50 ML IV SCH (16:15)
--- NOTE | 2017-10-05 16:38 | OBPP ---
Progress Note Assessment/Plan: Assessment: 1) preeclampsia 2) s/p 1 LTCS secondary to AOD, failed vacuum POD # 3 - pt is stable Plan: Will start MgSo4 x 24 hrs Cont to closely monitor BPs; IV Labetalol if BPs >160/105 Will recheck PIH labs in am 10/0610/05/17 16:35 Subjective/ Course: 10/05/17 01:09 late entry Pt doing well, she denies any headaches, visual changes, epigastric pain. She reports min bleeding and pain. She is without difficulty. She is ambulating and voiding without difficulty. She reports +BM. 10/05/17 09:36 Pt seen and examined. She is tearful this morning and worried about baby. Minimal cramping. Mod lochia. Denies any BRYANT/s, visual changes, or RUQ pain. Pt is OOB, thien reg diet, voiding and passing flatus. BM x 1. BF without difficulty -concerned her milk hasn't come in yet. 10/05/17 16:37 Pt denies any HAs, visual changes or RUQ pain. BPs elevated. Pt is overwhelmed with everything. Objective: 10/05/17 10:50 10/05/17 10:50 Patient ABO/Rh AB POSITIVE 10/01/17 16:00 Uric Acid 7.9 mg/dL (2.5-6.8) H 10/05/17 10:50 Total Bilirubin 0.3 mg/dL (0.1-1.4) 10/05/17 10:50 Conjugated Bilirubin 0.1 mg/dL (0.0-0.5) 10/05/17 10:50 Unconjugated Bilirubin 0.2 mg/dL (0.0-1.1) 10/05/17 10:50 AST 49 IU/L (14-46) H 10/05/17 10:50 ALT 51 IU/L (9-52) 10/05/17 10:50 Lactate Dehydrogenase 549 IU/L (313-618) 10/05/17 10:50 Temp Pulse Resp BP Pulse Ox 36.6 C 90 18 153/96 H 95 10/05/17 13:00 10/05/17 13:00 10/05/17 13:00 10/05/17 13:00 10/05/17 13:00 Physical Exam - Physical Exam Extremities: non-tender, normal inspection, swelling DTR- Lower Extremities: Plantar (R): 1+, Plantar (L): 1+ Neuro/Psych: alert, normal mood/affect, oriented x 3
[2017-10-05] MEDS ORDERED: LABETALOL HCL 5 MG/ML 20 ML MDV IVP ONE (16:39)
[2017-10-05] MEDS ORDERED: CALCIUM GLUC 10% 1 GM/10 ML VIAL IVP PRN (16:46)
[2017-10-05] MEDS ORDERED: MAGNESIUM SULF 4 GM/WATER 100 ML IV ONE (16:46)
[2017-10-05] MEDS ORDERED: Mag Sulf 500 ML IV SCH (17:00)
[2017-10-05 21:07] VITALS: RESP 16
[2017-10-05] MEDS ORDERED: LABETALOL HCL 5 MG/ML 20 ML MDV IVP PRN (23:10)
[2017-10-06] MEDS: IBUPROFEN 600 MG TAB PO PRN ×2 (03:00→23:07)
[2017-10-06 06:09] LABS: % IMMATURE GRANULYOCYTES 2.9 % (0.0-1.1); ABSOLUTE IMMATURE GRANULOCYTES 0.25 10^3/uL (0.00-0.10); ABSOLUTE NRBC COUNT 0.03 10^3/uL (0-0.01); ADD DIFF? NO; ADD MORPH? NO; ADD SCAN? NO; ATYPICAL LYMPHOCYTE FLAG 0 (0-99); FRAGMENT RBC FLAG 0 (0-99); HEMATOCRIT 27.7 % (38.0-47.0); HEMOGLOBIN 9.4 g/dL (12.6-16.3); LEFT SHIFT FLG 20 (0-99); LIPEMIA HEMOLYSIS FLAG 90 (0-99); MEAN CELL HEMOGLOBIN 30.8 pg (27.9-34.1); MEAN CELL HEMOGLOBIN CONCENTR. 33.9 g/dL (32.4-36.7); MEAN CELL VOLUME 90.8 fL (81.5-99.8); NRBC-AUTO% 0.3 % (0.0-0.2); PLATELET CLUMPS FLAG 0 (0-99); PLATELET COUNT 271 10^3/uL (150-400); RED BLOOD CELL COUNT 3.05 10^6/uL (4.18-5.33); RED CELL DISTRIBUTION WIDTH 14.7 % (11.5-15.2)
[2017-10-06 06:32] LABS: ALANINE AMINOTRANSFERASE 60 IU/L (9-52); ASPARTATE AMINOTRANSFERASE 60 IU/L (14-46); BILIRUBIN,TOTAL 0.4 mg/dL (0.1-1.4); BILIRUBIN-CONJUGATED 0.1 mg/dL (0.0-0.5); BILIRUBIN-UNCONJUGATED 0.3 mg/dL (0.0-1.1); CREATININE 0.6 mg/dL (0.6-1.0); GLOMERULAR FILTRATION RATE > 60; LACTATE DEHYDROGENASE 657 IU/L (313-618); URIC ACID 7.1 mg/dL (2.5-6.8)
[2017-10-06] MEDS: NIFEdipine ER 30 MG TAB PO SCH ×2 (09:10→21:14)
[2017-10-06] MEDS: SENNOSIDES/DOCUSATE SODIUM TAB PO SCH ×3 (09:12→23:46)
--- NOTE | 2017-10-06 13:53 | OBPP ---
Progress Note Assessment/Plan: Assessment: POD 3 s/p primary section arrest of descent PP preeclampsia - on magnesium for 24 hrs on procardia for PP B/P Plan: will stop magnesium at approx 5p and keep close eye on b/p. 10/02/17 18:13 10/06/17 13:47 Subjective/ Course: 10/05/17 01:09 late entry Pt doing well, she denies any headaches, visual changes, epigastric pain. She reports min bleeding and pain. She is without difficulty. She is ambulating and voiding without difficulty. She reports +BM. 10/05/17 09:36 Pt seen and examined. She is tearful this morning and worried about baby. Minimal cramping. Mod lochia. Denies any BRYANT/s, visual changes, or RUQ pain. Pt is OOB, thien reg diet, voiding and passing flatus. BM x 1. BF without difficulty -concerned her milk hasn't come in yet. 10/05/17 16:37 Pt denies any HAs, visual changes or RUQ pain. BPs elevated. Pt is overwhelmed with everything. 10/06/17 13:49 Pt doing well - feels 'heavy' with magnesium. BF/pumping and milk has come in. bld is very light. urinating fine. pain management is wonderful with only ibu now. Disc needing anti-HTN meds for several weeks. Objective: 10/06/17 06:00 10/06/17 06:00 Patient ABO/Rh AB POSITIVE 10/01/17 16:00 Uric Acid 7.1 mg/dL (2.5-6.8) H 10/06/17 06:00 Total Bilirubin 0.4 mg/dL (0.1-1.4) 10/06/17 06:00 Conjugated Bilirubin 0.1 mg/dL (0.0-0.5) 10/06/17 06:00 Unconjugated Bilirubin 0.3 mg/dL (0.0-1.1) 10/06/17 06:00 AST 60 IU/L (14-46) H 10/06/17 06:00 ALT 60 IU/L (9-52) H 10/06/17 06:00 Lactate Dehydrogenase 657 IU/L (313-618) H 10/06/17 06:00 Temp Pulse Resp BP Pulse Ox 36.8 C 98 16 143/81 H 96 10/05/17 19:00 10/05/17 21:00 10/05/17 21:00 10/06/17 09:10 10/05/17 21:00 Uterine Position/Fundal Height: Umbilicus -1 Uterine Tone: Firm Physical Exam - Physical Exam Respiratory: lungs clear, normal breath sounds Cardiac/Chest: regular rate, rhythm Abdomen: non-tender, soft, other (incision CDI, FF at umb -1) Extremities: non-tender, pedal edema (minimal) Skin: normal color, warm/dry Neuro/Psych: alert, normal mood/affect, other (brisk reflexes)
[2017-10-07] MEDS: IBUPROFEN 600 MG TAB PO PRN (09:35)
[2017-10-07] MEDS: SENNOSIDES/DOCUSATE SODIUM TAB PO SCH (09:35)
[2017-10-07] MEDS: NIFEdipine ER 30 MG TAB PO SCH (09:35)
[2017-10-07 11:00] VITALS: PULSE 108; TEMP 98; O2SAT 92
--- NOTE | 2017-10-07 11:38 | OBPP ---
Progress Note Assessment/Plan: Assessment: 1) preeclampsia with labile BPs - s/p MgSo4 2) s/p 1 LTCS secondary to AOD, failed vacuum POD # 4 - pt is stable Plan: BPs better on 30 mg of Nifedipine, will send home with Rx Check BP prior to D/C Pt is asymptonmatic RTC in 3 days for BP check Plan for d/c later today Instructions reviewed with pt Rx given for Almira, Motrin and Nifedipine Cont PNV and iron Pelvic rest RTC in 2 weeks for incision check 10/07/17 11:33 Subjective/ Course: 10/05/17 01:09 late entry Pt doing well, she denies any headaches, visual changes, epigastric pain. She reports min bleeding and pain. She is without difficulty. She is ambulating and voiding without difficulty. She reports +BM. 10/05/17 09:36 Pt seen and examined. She is tearful this morning and worried about baby. Minimal cramping. Mod lochia. Denies any BRYANT/s, visual changes, or RUQ pain. Pt is OOB, thien reg diet, voiding and passing flatus. BM x 1. BF without difficulty -concerned her milk hasn't come in yet. 10/05/17 16:37 Pt denies any HAs, visual changes or RUQ pain. BPs elevated. Pt is overwhelmed with everything. 10/06/17 13:49 Pt doing well - feels 'heavy' with magnesium. BF/pumping and milk has come in. bld is very light. urinating fine. pain management is wonderful with only ibu now. Disc needing anti-HTN meds for several weeks. 10/07/17 11:36 Pt seen and examined. Feeling much better. Denies any BRYANT's, visual changes or RUQ pain. Pain is controlled with Motrin. Mod lochia. BF/pumping Wan without difficulty. Wants to go home today. Objective: 10/06/17 06:00 10/06/17 06:00 Patient ABO/Rh AB POSITIVE 10/01/17 16:00 Uric Acid 7.1 mg/dL (2.5-6.8) H 10/06/17 06:00 Total Bilirubin 0.4 mg/dL (0.1-1.4) 10/06/17 06:00 Conjugated Bilirubin 0.1 mg/dL (0.0-0.5) 10/06/17 06:00 Unconjugated Bilirubin 0.3 mg/dL (0.0-1.1) 10/06/17 06:00 AST 60 IU/L (14-46) H 10/06/17 06:00 ALT 60 IU/L (9-52) H 10/06/17 06:00 Lactate Dehydrogenase 657 IU/L (313-618) H 10/06/17 06:00 Temp Pulse Resp BP Pulse Ox 36.7 C 108 H 16 135/91 H 92 10/07/17 08:00 10/07/17 08:00 10/07/17 08:00 10/07/17 09:35 10/07/17 08:00 Uterine Position/Fundal Height: Umbilicus -2 Uterine Tone: Firm Physical Exam - Physical Exam Respiratory: lungs clear, normal breath sounds Cardiac/Chest: regular rate, rhythm Abdomen: normal bowel sounds, non-tender, soft, flatus (+), incision (C/D/I, well approximated) Extremities: non-tender, normal inspection DTR- Lower Extremities: Plantar (R): 1+, Plantar (L): 1+ Skin: normal color, warm/dry Neuro/Psych: no motor/sensory deficits, alert, normal mood/affect
--- NOTE | 2017-10-07 11:41 | OBGCSDC ---
General Delivery Information - General Info : 1 Para: 1 Abortions: 0 Type: Primary L&D Analgesia/Anesthesia Type: Epidural Admission Date: 10/01/17 Labs: Patient ABO/Rh AB POSITIVE 10/01/17 16:00 Hct 27.7 % (38.0-47.0) L 10/06/17 06:00 - Hospital Course Antepartum: edc 10/14/2017 came in too office today for routine check with elevated bp. PIH labs WNL. BP elevated over several hours in labor and delivery. anemic with . AMA. Exposure to zika virus negative testing. inatal negative. 10/01/17 18:47 Intrapartum: 10/01/17 17:00 Denies PIH symptoms. Denies regular contractions. Feeling positive movement denies leaking and bleeding. Discussed need to have a baby with elevated bp 10/01/17 18:42 Denies PIH symptoms. Denies pain. Feeling pain with speculum exam, and mcnally placement. 10/02/17 06:57 Feeling greater pain. Urge to pee continually. Feeling some pressure. 10/02/17 18:15 pt is fatiqued, has had pressure and pushed effectively for approx 2 hours - less effectively for building fatique for and hour, at that point, baby at 0 station and attempt to position for labor down and rest. now approx 1 1/2 hour later - attempted VAVD but no descent with station, feels in good OA position but no descent - pt too fatiqued to push further. Disc C/S and pt agrees and consent signed. : 10/05/17 01:09 late entry Pt doing well, she denies any headaches, visual changes, epigastric pain. She reports min bleeding and pain. She is without difficulty. She is ambulating and voiding without difficulty. She reports +BM. 10/05/17 09:36 Pt seen and examined. She is tearful this morning and worried about baby. Minimal cramping. Mod lochia. Denies any BRYANT/s, visual changes, or RUQ pain. Pt is OOB, thien reg diet, voiding and passing flatus. BM x 1. BF without difficulty -concerned her milk hasn't come in yet. 10/05/17 16:37 Pt denies any HAs, visual changes or RUQ pain. BPs elevated. Pt is overwhelmed with everything. 10/06/17 13:49 Pt doing well - feels 'heavy' with magnesium. BF/pumping and milk has come in. bld is very light. urinating fine. pain management is wonderful with only ibu now. Disc needing anti-HTN meds for several weeks. 10/07/17 11:36 Pt seen and examined. Feeling much better. Denies any BRYANT's, visual changes or RUQ pain. Pain is controlled with Motrin. Mod lochia. BF/pumping Wan without difficulty. Wants to go home today. Vaginal - Diagnosis Amniotic Fluid Color: Clear - Procedures Non-surgical Procedures: Amniotomy - Delivery Providers Surgeon: Shelley Escobar Associate Justice: Lorie Gudino Anesthesiologist: Claudy Cleary - Delivery Number of Prior Sections: 0 Indications for Current Section: Arrest of Descent Non-surgical Procedures: Amniotomy Surgical Procedures: Unscheduled, Low Transverse EBL: 1400 Data LUKAS: 10/14/17 Gestational Age: 39 week(s) and 0 day(s) [place] Delivery Date: 10/02/17 Delivery Time: 18:40 Sex of Infant: Female Score (1 Min): 8 Score (5 Min): 9 Discharge Information - Discharge Information Instruction/Follow Up: See Instruction Sheet (RTC in 3 days for BP check)
[2017-10-07 12:06] LABS: % IMMATURE GRANULYOCYTES 1.7 % (0.0-1.1); ABSOLUTE IMMATURE GRANULOCYTES 0.15 10^3/uL (0.00-0.10); ADD DIFF? NO; ADD MORPH? NO; ADD SCAN? NO; ATYPICAL LYMPHOCYTE FLAG 0 (0-99); FRAGMENT RBC FLAG 0 (0-99); HEMATOCRIT 28.4 % (38.0-47.0); HEMOGLOBIN 9.4 g/dL (12.6-16.3); LEFT SHIFT FLG 10 (0-99); LIPEMIA HEMOLYSIS FLAG 80 (0-99); MEAN CELL HEMOGLOBIN 30.1 pg (27.9-34.1); MEAN CELL HEMOGLOBIN CONCENTR. 33.1 g/dL (32.4-36.7); MEAN PLATELET VOLUME 8.8 fL (8.7-11.7); PLATELET CLUMPS FLAG 0 (0-99); PLATELET COUNT 308 10^3/uL (150-400); RED BLOOD CELL COUNT 3.12 10^6/uL (4.18-5.33); RED CELL DISTRIBUTION WIDTH 14.5 % (11.5-15.2)
[2017-10-07 12:31] LABS: ALANINE AMINOTRANSFERASE 48 IU/L (9-52); ASPARTATE AMINOTRANSFERASE 46 IU/L (14-46); BILIRUBIN,TOTAL 0.4 mg/dL (0.1-1.4); BILIRUBIN-CONJUGATED 0.2 mg/dL (0.0-0.5); BILIRUBIN-UNCONJUGATED 0.2 mg/dL (0.0-1.1); CREATININE 0.7 mg/dL (0.6-1.0); GLOMERULAR FILTRATION RATE > 60; LACTATE DEHYDROGENASE 644 IU/L (313-618); URIC ACID 7.5 mg/dL (2.5-6.8)
[2017-10-07 12:40] VITALS: BP 151/96
== END 2017-10-07 15:02 | disposition home or self-care (01) | DRG 765 ==
LOC: FLD 15:28 → OBSVTOIN 15:28 → UNDODISIN 18:30 → FLD 10-02 19:03 → FOB 10-02 22:07 → FLD 10-05 16:59 → FOB 10-06 23:09
PROVIDERS: ADMIT Advanced Practice Midwife; ATTEND Advanced Practice Midwife
PROC: 0U7C7ZZ Dilation of Cervix, Via Natural or Artificial Opening (ICD-10-PCS; principal; 2017-10-02)
PROC: 10D00Z1 Extraction of Products of Conception, Low, Open Approach (ICD-10-PCS; principal; 2017-10-02)
PROC: 3E033VJ Introduction of Other Hormone into Peripheral Vein, Percutaneous Approach (ICD-10-PCS; principal; 2017-10-02)
DX: O62.1 Secondary uterine inertia (principal); O13.3 Gestational [pregnancy-induced] hypertension without significant proteinuria, third trimester; Z37.0 Single live birth; Z3A.39 39 weeks gestation of pregnancy; O66.5 Attempted application of vacuum extractor and forceps; O14.95 Unspecified pre-eclampsia, complicating the puerperium; O99.02 Anemia complicating childbirth; D64.9 Anemia, unspecified
CPT/HCPCS: J0610; J0690; J1100; J1885; J2274; J2370; J2405; J2590; J2765; J3010; J3105; J3475; J3490

== ENCOUNTER → 2017-10-16 | Outpatient (CLI) | payer OTHER | LOC: FLAB 09:55 | PROVIDERS: ATTEND Obstetrics & Gynecology | DX: Z39.1 Encounter for care and examination of lactating mother (principal) | CPT/HCPCS: G0463 ==

== ENCOUNTER → 2018-01-04 | Outpatient (CLI) | payer OTHER | LOC: FIMAGING 16:21 | PROVIDERS: ATTEND Obstetrics & Gynecology | DX: N61.0 Mastitis without abscess (principal) ==